=== PATIENT | female | born 1985 | race Caucasian/White ===

== ENCOUNTER 2018-02-14 11:52 | Emergency (ER) | payer OTHER ==
[~2018-02-14] VITALS: Ht 157.5 cm; Wt 69.4 kg
[2018-02-14 11:56] VITALS: TEMP 36.8; Ht 157.5 cm; Wt 69.4 kg
[2018-02-14] MEDS ORDERED: TRAM-10 PO (12:05)
[2018-02-14 12:28] LABS: BASO % 0.3 %; BASO ABS # 0.03 K/uL (0-0.2); EOS % 1.1 %; HEMATOCRIT 41.3 % (37-47); HEMOGLOBIN 14.5 g/dL (12.0-16.0); IG# 0.01 K/uL (0.00-0.02); LYMPH % 31.9 %; LYMPH ABS # 2.79 K/uL (1.2-3.4); MEAN CORPUSCULAR HEMOGLOBIN 30.2 pg (25-34); MEAN CORPUSCULAR HGB CONC 35.1 g/dl (32-36); MEAN PLATELET VOLUME 10.2 fL (7.4-10.4); MONO % 4.9 %; MONO ABS # 0.43 K/uL (0.11-0.59); NEUT % 61.7 %; NEUT ABS # 5.39 K/uL (1.4-6.5); PLATELET COUNT 256 K/uL (130-400); RED CELL DISTRIBUTION WIDTH CV 12.7 % (11.5-14.5); RED CELL DISTRIBUTION WIDTH SD 40.2 fL (36.4-46.3); WHITE BLOOD COUNT 8.75 K/uL (4.8-10.8)
[2018-02-14] MEDS ORDERED: MECLIZINE HCL 25 MG TAB PO STA (12:36)
[2018-02-14] MEDS ORDERED: SODIUM CHLORIDE 0.9% 1000ML 1,000 ML IV STA (12:36)
[2018-02-14 12:37] LABS: ALBUMIN 4.2 gm/dl (3.4-5.0); CALCIUM 8.9 mg/dl (8.5-10.1); CREATININE 0.77 mg/dl (0.60-1.20); POTASSIUM 3.6 mmol/L (3.5-5.1)
[2018-02-14 12:40] LABS: TOTAL PROTEIN 7.7 gm/dl (6.4-8.2)
--- NOTE | 2018-02-14 13:07 | DIAGNOSTIC IMAGING REPORT ---
HEAD CT NONCONTRAST CT DOSE: 537.48 mGy.cm HISTORY: EVALUATE ALTERED MENTAL STATUS/WEAKNESS TECHNIQUE: Multiaxial CT images of the head were performed without the use of intravenous contrast. Automated exposure control was utilized for this study. A dose lowering technique was utilized adhering to the principles of ALARA. Comparison: None. Findings: The paranasal sinuses and mastoid air cells are clear. The calvarium and skull base are intact. The ventricles and sulci are within normal limits. There is no mass, hematoma, midline shift, or acute infarct. Impression: No acute intracranial abnormality. Electronically signed by: Cuco Esposito M.D. 02/14/2018 1:06 PM Dictated Date/Time: 02/14/2018 12:57 PM
--- NOTE | 2018-02-14 13:45 | DIAGNOSTIC IMAGING REPORT ---
CHEST ONE VIEW PORTABLE HISTORY: 32 years-old Female EVALUATE ALTERED MENTAL STATUS/WEAKNESS acutely altered mental status COMPARISON: [facility] 04/11/2016 TECHNIQUE: Portable AP view of the chest FINDINGS: Cardiomediastinal and hilar silhouettes are within normal limits. There is no pneumothorax, pleural effusion, focal airspace consolidation or overt pulmonary edema. Bones of the chest appear grossly intact. IMPRESSION: No acute process. The above report was generated using voice recognition software. It may contain grammatical, syntax or spelling errors. Electronically signed by: Conrad Mariscal M.D. 02/14/2018 1:44 PM Dictated Date/Time: 02/14/2018 1:42 PM
[2018-02-14 14:30] VITALS: BP 99/66; PULSE 65; O2SAT 100
--- NOTE | 2018-02-20 06:14 | EMERGENCY ROOM VISIT NOTE ---
History Report prepared by Panchito: Eliazar Mae Under the Supervision of: Gretchen TownsendO. First contact with patient: 12:24 Chief Complaint: DIZZY Stated Complaint: BLURRED VISION,DIZZINESS,VOMITING Nursing Triage Summary: 0930 sudden onset of blurred vision, n/v and dizziness. pt had one episode of vomiting and became dizzy after. pt reports no recent illness. hx of migraines in past but has no headache now. now vision blurry only in left eye. dizziness slightly better than previously. denies LOC. denies head injury History of Present Illness The patient is a 32 year old female who presents to the Emergency Room with complaints of constant dizziness beginning shortly prior to arrival. Her symptoms began with blurred vision followed by an episode of vomiting. The patient was at work when her episode occurred. Her dizziness is worsened with standing up. The patient has a history of migraines, but currently denies headaches. She is on Tramadol for scoliosis. She has a history of , laparoscopy, hysteroscopy, and D&C. The patient states that she felt normal today. She notes that her eyes were twitching yesterday, but otherwise she felt normal. The patient denies nausea, vomiting, or diarrhea prior to today. Her LNMP was about one month ago. Source of History: patient Onset: Shortly prior to arrival Quality: other (dizziness) Timing: constant Modifying Factors (Worsening): other (standing up) Associated Symptoms: + vomiting, No headache, No diarrhea Note: Positive: blurred vision. Review of Systems See HPI for pertinent positives & negatives. A total of 10 systems reviewed and were otherwise negative. Past Medical & Surgical Medical Problems: (1) Scoliosis Surgical Problems: (1) Previous section Family History No pertinent family history stated. Social History Smoking Status: Never Smoker Occupation Status: employed Current/Historical Medications Scheduled Tramadol (Ultram), 50 MG PO DAILY Allergies Coded Allergies: No Known Allergies (Unverified , 02/14/18) Physical Exam Vital Signs Date Time Temp Pulse Resp B/P (MAP) Pulse Ox O2 Delivery O2 Flow Rate FiO2 02/14/18 14:30 65 18 99/66 100 02/14/18 14:16 65 18 99/66 100 Room Air 02/14/18 13:01 58 18 100/61 98 Room Air 02/14/18 12:16 69 02/14/18 12:10 63 111/65 99 Room Air 70 112/78 79 114/85 02/14/18 11:56 36.8 76 20 94/52 95 Room Air Physical Exam GENERAL: Patient is awake, alert, and in no acute distress. Patient is resting comfortably and showing no signs of anxiety EYES: The conjunctivae are clear. The pupils are round and reactive. EARS, NOSE, MOUTH AND THROAT: The nose is without any evidence of any deformity. Mucous membranes are moist tongue is midline NECK: The neck is nontender and supple. RESPIRATORY: Normal respiratory effort is noted there is no evidence of wheezing rhonchi or rales CARDIOVASCULAR: Regular rate and rhythm noted there no murmurs rubs or gallops normal S1 normal S2 GASTROINTESTINAL: The abdomen is soft. Bowel sounds are present in all quadrants. Abdomen is nontender MUSCULOSKELETAL/EXTREMITIES: There is no evidence of gross deformity full range of motion is noted in the hips and shoulders SKIN: There is no obvious evidence of any rash. There are no petechiae, pallor or cyanosis noted. NEUROLOGIC: Patient is awake alert and oriented x3 strength is symmetric patellar reflexes are 2+ bilaterally. No pass pointing. Medical Decision & Procedures ER Provider Diagnostic Interpretation: Radiology results as stated below per my review and radiologist interpretation: HEAD CT NONCONTRAST Findings: The paranasal sinuses and mastoid air cells are clear. The calvarium and skull base are intact. The ventricles and sulci are within normal limits. There is no mass, hematoma, midline shift, or acute infarct. Impression: No acute intracranial abnormality. Electronically signed by: Cuco Esposito M.D. 02/14/2018 1:06 PM CHEST ONE VIEW PORTABLE FINDINGS: Cardiomediastinal and hilar silhouettes are within normal limits. There is no pneumothorax, pleural effusion, focal airspace consolidation or overt pulmonary edema. Bones of the chest appear grossly intact. IMPRESSION: No acute process. The above report was generated using voice recognition software. It may contain grammatical, syntax or spelling errors Electronically signed by: Conrad Mariscal M.D. 02/14/2018 1:44 PM Laboratory Results 02/14/18 12:15 Red Blood Count 4.80, Mean Corpuscular Volume 86.0, Mean Corpuscular Hemoglobin 30.2, Mean Corpuscular Hemoglobin Concent 35.1, Mean Platelet Volume 10.2, Neutrophils (%) (Auto) 61.7, Lymphocytes (%) (Auto) 31.9, Monocytes (%) (Auto) 4.9, Eosinophils (%) (Auto) 1.1, Basophils (%) (Auto) 0.3, Neutrophils # (Auto) 5.39, Lymphocytes # (Auto) 2.79, Monocytes # (Auto) 0.43, Eosinophils # (Auto) 0.10, Basophils # (Auto) 0.03 02/14/18 12:15 Test 02/14/18 12:15 02/14/18 12:29 White Blood Count 8.75 K/uL (4.8-10.8) Red Blood Count 4.80 M/uL (4.2-5.4) Hemoglobin 14.5 g/dL (12.0-16.0) Hematocrit 41.3 % (37-47) Mean Corpuscular Volume 86.0 fL (80-100) Mean Corpuscular Hemoglobin 30.2 pg (25-34) Mean Corpuscular Hemoglobin Concent 35.1 g/dl (32-36) Platelet Count 256 K/uL (130-400) Mean Platelet Volume 10.2 fL (7.4-10.4) Neutrophils (%) (Auto) 61.7 % Lymphocytes (%) (Auto) 31.9 % Monocytes (%) (Auto) 4.9 % Eosinophils (%) (Auto) 1.1 % Basophils (%) (Auto) 0.3 % Neutrophils # (Auto) 5.39 K/uL (1.4-6.5) Lymphocytes # (Auto) 2.79 K/uL (1.2-3.4) Monocytes # (Auto) 0.43 K/uL (0.11-0.59) Eosinophils # (Auto) 0.10 K/uL (0-0.5) Basophils # (Auto) 0.03 K/uL (0-0.2) RDW Standard Deviation 40.2 fL (36.4-46.3) RDW Coefficient of Variation 12.7 % (11.5-14.5) Immature Granulocyte % (Auto) 0.1 % Immature Granulocyte # (Auto) 0.01 K/uL (0.00-0.02) Anion Gap 6.0 mmol/L (3-11) Est Creatinine Clear Calc Drug Dose 97.5 ml/min Estimated GFR () 120.1 Estimated GFR (Non- 103.6 BUN/Creatinine Ratio 15.8 (10-20) Calcium Level 8.9 mg/dl (8.5-10.1) Magnesium Level 2.1 mg/dl (1.8-2.4) Total Bilirubin 0.4 mg/dl (0.2-1) Aspartate Amino Transf (AST/SGOT) 12 U/L (15-37) Alanine Aminotransferase (ALT/SGPT) 20 U/L (12-78) Alkaline Phosphatase 60 U/L (45-117) Total Protein 7.7 gm/dl (6.4-8.2) Albumin 4.2 gm/dl (3.4-5.0) Globulin 3.5 gm/dl (2.5-4.0) Albumin/Globulin Ratio 1.2 (0.9-2) Thyroid Stimulating Hormone (TSH) 1.170 uIu/ml (0.300-4.500) Urine Color YELLOW Urine Appearance CLEAR (CLEAR) Urine pH 6.5 (4.5-7.5) Urine Specific [place] 1.011 (1.000-1.030) Urine Protein NEG (NEG) Urine Glucose (UA) NEG (NEG) Urine Ketones NEG (NEG) Urine Occult Blood NEG (NEG) Urine Nitrite NEG (NEG) Urine Bilirubin NEG (NEG) Urine Urobilinogen NEG (NEG) Urine Leukocyte Esterase SMALL (NEG) Urine WBC (Auto) 1-5 /hpf (0-5) Urine RBC (Auto) 0-4 /hpf (0-4) Urine Hyaline Casts (Auto) 1-5 /lpf (0-5) Urine Epithelial Cells (Auto) 5-10 /lpf (0-5) Urine Bacteria (Auto) NEG (NEG) Urine Test NEG (NEG) Laboratory results per my review. Medications Administered Medications (Trade) Dose Ordered Sig/Jermaine Route Start Time Stop Time Status Last Admin Dose Admin Sodium Chloride 1,000 ml @ 999 mls/hr Q1H1M STAT IV 02/14/18 12:36 02/14/18 13:36 DC 02/14/18 13:02 999 MLS/HR Meclizine HCl (Antivert Tab) 25 mg NOW STAT PO 02/14/18 12:36 02/14/18 12:37 DC 02/14/18 13:02 25 MG ECG Per My Interpretation Indication: other (dizziness) Rate (beats per minute): 58 Rhythm: sinus bradycardia Findings: no ectopy, other (No acute ST segments) Comparison ECG Date: no prior available ED Course 1229: The patient was evaluated in room B4B. A complete history and physical examination were performed. 1236: Ordered Antivert Tab 25 mg PO, NSS 1,000 ml @ 999 mls/hr IV. 1430: Upon reevaluation, the patient is resting comfortably. I discussed the results and treatment plan with her. She verbalized agreement of the treatment plan. The patient was discharged home. Medical Decision Differential diagnosis: Etiologies such as benign positional vertigo, dehydration, hypovolemia, anemia, tumor, infection, hypoglycemia, electrolyte abnormalities, cardiac sources, intracerebral event, toxicologic, neurologic, as well as others were entertained. Nursing notes reviewed. Documentation from the [facility] was reviewed. The patient is a 32-year-old female who presented to the emergency department for an evaluation of visual difficulties. The patient started noticing abnormalities in her left vision field. She also had complaints of vertigo. She had no focal neurologic deficit and her vision complaints were almost completely resolved. The patient was seen at the [facility] and was sent to the emergency department with complaints that they felt could be consistent with an arterial occlusion. I discussed patient's laboratory and radiographic studies with her. Because there was concern of a retinal artery occlusion I discussed her case with the on-call inflated ball molder. They have agreed to evaluate the patient in the office for further management of the eye. The patient was encouraged to follow-up with her primary care physician as soon as possible. If no answer was found to her current clinical condition I recommended that she follow-up with her doctor and discussed possibility that she may require further neuro testing such as an MRI or possibly a referral to an ear nose and throat physician. Otherwise she was encouraged to return the emergency department immediately if symptoms change worsen or the need arises. Medication Reconcilliation Current Medication List: was personally reviewed by me Blood Pressure Screening Patient's blood pressure: Normal blood pressure Blood pressure disposition: Did not require urgent referral Consults Time Called: 1410 Consulting Physician: Dr. Engle - Ophthalmology Returned Call: [phone] I discussed the patient's case with Dr. Engle. He will see the patient in his office now. He will send the patient back to the ER if there are any significant findings. Impression Primary Impression: Vertigo Additional Impression: Visual disturbance Scribe Attestation The scribe's documentation has been prepared under my direction and personally reviewed by me in its entirety. I confirm that the note above accurately reflects all work, treatment, procedures, and medical decision making performed by me. Departure Information Dispostion Home / Self-Care Referrals No Doctor, Assigned (PCP) Forms HOME CARE DOCUMENTATION FORM, IMPORTANT VISIT INFORMATION Patient Instructions ED Vertigo Unspecified, My [facility] [address] Additional Instructions Go directly to the Ophthomologist office. Follow up with your PCP for further testing such as an MRI or a referral to an ENT. Problem Qualifiers
== END 2018-02-14 14:31 | disposition home or self-care (01) ==
LOC: C.EDB 11:52
DX: R42 Dizziness and giddiness (principal); H53.9 Unspecified visual disturbance; M41.9 Scoliosis, unspecified; Z79.899 Other long term (current) drug therapy